=== PATIENT | male | born 1990 | race Two or more races ===

== ENCOUNTER 2020-08-16 19:06 | Emergency (ER) | payer MEDICAID ==
[~2020-08-16] VITALS: Ht 172.7 cm; Wt 63.0 kg
[2020-08-16 19:08] VITALS: BP 140/86
== END 2020-08-16 19:36 | disposition left against medical advice (07) ==
LOC: ER 19:06
DX: R68.89 Other general symptoms and signs (principal); Z53.21 Procedure and treatment not carried out due to patient leaving prior to being seen by health care provider